=== PATIENT | female | born 1950 | race Caucasian/White ===

== ENCOUNTER 2017-09-15 18:43 | Emergency (ER) | payer MEDICARE, OTHER ==
[2017-09-15] MEDS: HYDROCODONE/APAP (5/325) TAB PO (21:34)
== END 2017-09-16 02:10 | disposition home or self-care (01) ==
LOC: FTE 09-16 02:10
DX: S49.92XA Unspecified injury of left shoulder and upper arm, initial encounter (principal); S79.912A Unspecified injury of left hip, initial encounter; S19.9XXA Unspecified injury of neck, initial encounter; E11.9 Type 2 diabetes mellitus without complications; W01.0XXA Fall on same level from slipping, tripping and stumbling without subsequent striking against object, initial encounter; Y92.9 Unspecified place or not applicable; Z79.82 Long term (current) use of aspirin; Z87.891 Personal history of nicotine dependence; Z79.84 Long term (current) use of oral hypoglycemic drugs
CPT/HCPCS: 72040; 73030; 73510; 73550; 99284-25

== ENCOUNTER 2017-11-25 11:39 | Emergency (ER) | payer OTHER, MEDICARE ==
[2017-11-25] MEDS: PANTOPRAZOLE IV 80 MG in SOD CHLORIDE 0.9% 100 ML IVPB (17:33)
[2017-11-25 17:40] LABS: ADD MAN DIFF? NO
[2017-11-25 17:42] LABS: WHITE BLOOD COUNT 8.2 10^3/ul (4.8-10.8)
[2017-11-25 17:42] LABS: BASOPHIL # 0.1 10^3/ul (0.0-0.1); BASOPHILS % 0.8 % (0.0-2.0); EOSINOPHILS # 0.5 10^3/ul (0.0-0.5); EOSINOPHILS % 6.4 % (0.0-7.0); HEMATOCRIT 39.4 % (37.0-47.0); HEMOGLOBIN 13.2 g/dl (12.0-16.0); LYMPHOCYTES % 23.8 % (15.0-51.0); MEAN CORPUSCULAR HEMOGLOBIN 28.8 pg (29.0-33.0); MEAN CORPUSCULAR HGB CONC 33.5 g/dl (32.0-37.0); MEAN PLATELET VOLUME 9.7 fl (7.4-10.4); MONOCYTE # 0.8 10^3/ul (0.3-0.9); MONOCYTES % 9.1 % (0.0-11.0); NEUTROPHIL # 4.9 10^3/ul (1.6-7.5); NEUTROPHILS % 59.7 % (39.0-77.0); PLATELET COUNT 291 10^3/UL (140-415); RED BLOOD COUNT 4.58 10^6/ul (4.20-5.40)
[2017-11-25] MEDS: PANTOPRAZOLE IV 80 MG in SOD CHLORIDE 0.9% 100 ML IV (17:50)
[2017-11-25 17:57] LABS: INR 0.94; PROTIME 12.7 Sec (11.9-14.9)
[2017-11-25 17:58] LABS: PARTIAL THROMBOPLASTIN TIME 31.6 Sec (25.0-35.0)
[2017-11-25 17:59] LABS: ALANINE AMINOTRANSFERASE 25 IU/L (13-69); ALBUMIN 4.2 g/dl (3.3-4.9); ALBUMIN/GLOBULIN RATIO 1.31; ALKALINE PHOSPHATASE 70 IU/L (42-121); ANION GAP 12 (8-16); ASPARTATE AMINO TRANSFERASE 23 IU/L (15-46); BILIRUBIN,INDIRECT 0.1 mg/dl (0-1.1); BILIRUBIN,TOTAL 0.1 mg/dl (0.2-1.3); BLOOD UREA NITROGEN 26 mg/dl (7-20); CALCIUM 10.3 mg/dl (8.4-10.2); CARBON DIOXIDE 27 mmol/L (21-31); CHLORIDE 104 mmol/L (97-110); GLUCOSE 96 mg/dl (70-220); POTASSIUM 4.7 mmol/L (3.5-5.1); SODIUM 138 mmol/L (135-144); TOTAL PROTEIN 7.4 g/dl (6.1-8.1)
== END 2017-11-25 20:36 | disposition home or self-care (01) ==
LOC: E/R 11:39
DX: R19.7 Diarrhea, unspecified (principal); I10 Essential (primary) hypertension; E11.9 Type 2 diabetes mellitus without complications; R10.9 Unspecified abdominal pain; Z79.82 Long term (current) use of aspirin; Z79.4 Long term (current) use of insulin
CPT/HCPCS: 36415; 80053; 85025; 85610; 85730; 86850; 86900; 86901; 96374; 96375; 99284-25

== ENCOUNTER 2018-05-25 14:55 | Emergency (ER) | payer OTHER, MEDICARE ==
[2018-05-25] MEDS: KETOROLAC 15 MG INJ IM (18:30)
== END 2018-05-25 19:17 | disposition home or self-care (01) ==
LOC: FTE 14:55
DX: M25.551 Pain in right hip (principal); I10 Essential (primary) hypertension; E11.9 Type 2 diabetes mellitus without complications; Z79.82 Long term (current) use of aspirin; Z79.84 Long term (current) use of oral hypoglycemic drugs
CPT/HCPCS: 73502; 73510; 73550; 73552; 96372; 99284-25

== ENCOUNTER 2019-01-09 10:03 | Observation (INO) | payer OTHER ==
[2019-01-09] MEDS ORDERED: traMADol 50 MG TAB PO (11:30)
[2019-01-09 12:03] LABS: ADD MAN DIFF? NO
[2019-01-09 12:07] LABS: WHITE BLOOD COUNT 7.1 10^3/ul (4.8-10.8)
[2019-01-09 12:07] LABS: BASOPHIL # 0.1 10^3/ul (0.0-0.1); BASOPHILS % 1.1 % (0.0-2.0); EOSINOPHILS # 0.1 10^3/ul (0.0-0.5); HEMATOCRIT 39.6 % (37.0-47.0); LYMPHOCYTES # 1.9 10^3/ul (0.8-2.9); LYMPHOCYTES % 27.3 % (15.0-51.0); MEAN CORPUSCULAR HGB CONC 32.8 g/dl (32.0-37.0); MEAN CORPUSCULAR VOLUME 85.3 fl (82.0-101.0); MEAN PLATELET VOLUME 10.5 fl (7.4-10.4); MONOCYTE # 0.5 10^3/ul (0.3-0.9); MONOCYTES % 7.2 % (0.0-11.0); NEUTROPHIL # 4.4 10^3/ul (1.6-7.5); NEUTROPHILS % 62.3 % (39.0-77.0); PLATELET COUNT 234 10^3/UL (140-415); RED BLOOD COUNT 4.64 10^6/ul (4.20-5.40); RED CELL DISTRIBUTION WIDTH 12.4 % (11.5-14.5)
[2019-01-09] MEDS: ASPIRIN 81 MG TAB PO (12:15)
[2019-01-09] MEDS: GABAPENTIN 300 MG CAP PO ×2 (12:15→21:20)
[2019-01-09] MEDS: LOSARTAN 50 MG TAB PO (12:16)
[2019-01-09] MEDS: INSULIN ASPART [NOVOLOG] 3 ML PEN SC ×3 (12:20→21:28)
[2019-01-09 12:27] LABS: ANION GAP 8 (5-13); BLOOD UREA NITROGEN 23 mg/dl (7-20); CARBON DIOXIDE 28 mmol/L (21-31); CHLORIDE 102 mmol/L (97-110); Estimated GFR 55 mL/min (>60); GLUCOSE 184 mg/dl (70-220); POTASSIUM 4.2 mmol/L (3.5-5.1); SODIUM 138 mmol/L (135-144)
[2019-01-09] MEDS ORDERED: DEXTROSE 50% 50 ML SYRINGE IV ×2 (12:30)
[2019-01-09] MEDS ORDERED: GLUCOSE GEL 15 GRAM TUBE BUCCAL (12:30)
[2019-01-09] MEDS ORDERED: GLUCOSE GEL 15 GRAM TUBE PO ×2 (12:30)
[2019-01-09] MEDS ORDERED: GLUCAGON 1 MG INJ IM (12:30)
[2019-01-09 12:36] LABS: TROPONIN-I < 0.012 ng/ml (0.000-0.120)
[2019-01-09] MEDS: LATANOPROST 0.005% 2.5 ML OPH BOTH EYES (21:20)
[2019-01-09] MEDS: metFORMIN 500 MG TAB PO (21:20)
[2019-01-10] MEDS: INSULIN ASPART [NOVOLOG] 3 ML PEN SC ×2 (07:25→11:50)
[2019-01-10] MEDS: ASPIRIN 81 MG TAB PO (08:09)
[2019-01-10] MEDS: LOSARTAN 50 MG TAB PO (08:09)
[2019-01-10] MEDS: GABAPENTIN 300 MG CAP PO (08:10)
[2019-01-10] MEDS: ACETAMINOPHEN 325 MG TAB PO (10:50)
== END 2019-01-10 16:37 | disposition home or self-care (01) ==
LOC: E/R 10:03 → TEL 13:59
PROVIDERS: Internal Medicine
DX: R55 Syncope and collapse (principal); I10 Essential (primary) hypertension; E78.5 Hyperlipidemia, unspecified; E11.40 Type 2 diabetes mellitus with diabetic neuropathy, unspecified; H40.9 Unspecified glaucoma; S00.81XA Abrasion of other part of head, initial encounter; M25.552 Pain in left hip; Z79.4 Long term (current) use of insulin; Z79.82 Long term (current) use of aspirin; X58.XXXA Exposure to other specified factors, initial encounter
CPT/HCPCS: 36415; 70450; 71045; 73510; 80048; 82962; 84484; 85025; 93005; 93306; 96372; 99217; 99285-25; G0378